=== PATIENT | male | born 1990 | race Caucasian/White ===

== ENCOUNTER 2019-01-17 17:51 | Observation (INO) ==
[2019-01-17] MEDS ORDERED: ZOFRAN IV PRN (19:36)
[2019-01-17] MEDS ORDERED: TYLENOL PO PRN (19:36)
[2019-01-17] MEDS ORDERED: MORPHINE IV PRN (19:41)
[2019-01-17] MEDS ORDERED: ROCEPHIN 1 GM in NS 50 ML IV SCH (20:15)
--- NOTE | 2019-01-17 20:52 | HISTORY AND PHYSICAL ---
CHIEF COMPLAINT: Right flank pain. Kidney stones. HISTORY OF PRESENT ILLNESS: Mr. Jurado is a pleasant 28-year-old male who presented from [facility]. He states that he went this previous Tuesday and was told that he had a three mm kidney stone and was sent home in hopes that it would pass. Today, he had increasing pain that he could not tolerate in his right flank, extending down into his right scrotum and right lower abdomen. He went back and they noted that it was obstructive at this point and sent him here for Urology consultation. He will be placed in observation status on the medical floor. PAST MEDICAL HISTORY: Denies previous medical history. PREVIOUS SURGICAL HISTORY: None to note. SOCIAL HISTORY: Smokes half a pack of cigarettes per day. Smoking cessation was gone over with the patient and he denies wanting to quit at this time. No alcohol or illicit drugs. FAMILY HISTORY: Grandfather had coronary artery disease. Aunt at bedside has COPD. ALLERGIES: No known drug allergies. HOME MEDICATIONS: No home medications. He was given [place] 7.5 related to the pain at the ER. REVIEW OF SYSTEMS: Fourteen point review of systems conducted with the patient. Pertinent positives listed above in the HPI. He denied fever and chills. Had mild nausea, no vomiting. Was positive for abdominal pain, however denied any diarrhea, loss of appetite, or hematuria. All other systems reviewed and found to be negative. PHYSICAL EXAMINATION: VITAL SIGNS: Temperature 99.1, pulse 60, respirations 20, blood pressure 127/73, oxygen saturation 100% on room air. GENERAL: Obese 28-year-old male, very pleasant, lying in the medical floor bed. Alert and oriented x3, in no acute distress. Answers all questions appropriately. HEENT: Head is atraumatic, normocephalic. Pupils equal, round and reactive to light. Extraocular eye movements intact. Sclerae anicteric. Conjunctivae pink. Oral mucosa is moist. NECK: Supple. No JVD. No thyromegaly. Trachea is midline. No cervical lymphadenopathy. CARDIAC: S1, S2 appreciated. No murmurs, gallops, or rubs. LUNGS: Clear to auscultation bilaterally. No rhonchi, wheezes, or rales. Symmetric rise and fall of respirations. ABDOMEN: Protuberant. Soft, nondistended. Tender on the right side extending into his groin and right flank/right CVA tenderness. Bowel sounds present in all four quadrants. No pulsatile mass. No organomegaly. EXTREMITIES: No cyanosis, clubbing, or edema. 2+ pedal pulses bilaterally. GENITOURINARY: No bladder distention. Patient voids. Otherwise deferred. NEUROLOGICAL: Alert and oriented x3. No focal motor deficits. Otherwise nonfocal examination. DIAGNOSTIC DATA: CT or ultrasound was sent on a CD that has not been able to be viewed and read yet, but is with the physical chart. The verbal report was given that he had right obstructive nephrolithiasis. LABORATORY DATA: CBC within normal limits. Sodium 141, potassium 3.9, chloride 101, carbon dioxide 26, BUN 12, creatinine 1.1, glucose 93. Urinalysis with leukocyte esterase positive, 10- 20 WBCs, microscopic blood noted. ASSESSMENT AND PLAN: 1. Right obstructive nephrolithiasis. Will consult Dr. Ho, who can review the imaging that was sent from [facility]. Morphine 2 mg intravenously as needed every three hours. Will start normal saline at 125 mL an hour. Will start prophylactically on Rocephin 1 gram as his urine was leukocyte esterase positive and he does have right costovertebral angle tenderness. However, there was no mention of pyelonephritis on the imaging as far as I am aware of. 2. Flank pain and costovertebral angle tenderness secondary to #1. Please see above. 3. Nicotine use and abuse. Smoking cessation was gone over with the patient at length. Also, I spoke to his aunt. He denied wanting to quit at this time. 4. Nausea without vomiting. Will give Zofran. Further recommendations per patient's clinical course. Dictated by JOVANNA Ambrocio for Lesli Rodrigues MD cc: JOVANNA Ambrocio MD Independent exam and assessment performed by me. Exam was benign except for RLQ tenderness with rebound. Continue with IVF and will add on Flomax. Counselled pt regarding smoking and diet. [facility]
[2019-01-17] MEDS: NS 1,000 ML IV SCH (22:33)
[2019-01-18] MEDS: NS 1,000 ML IV SCH ×2 (04:03→08:21)
[2019-01-18 09:04] LABS: BASO# 0.02 X1000 (0.0-0.2); BASO% 0.3 % (0.0-0.8); EOS# 0.27 X1000 (0.0-0.7); EOS% 4.3 % (0.0-10.0); HEMATOCRIT 40.6 % (42.0-52.0); HEMOGLOBIN 13.7 g/dL (14.0-18.0); IMM GRAN# 0.04 X1000 (0.0-0.04); IMM GRAN% 0.6 % (0.0-0.5); LYMPH# 2.28 X1000 (1.2-3.4); LYMPH% 36.5 % (20.5-51.1); MCH 28.4 PG (27-31); MCHC 33.7 g/dL (33-37); MCV 84.2 FL (81-99); MONO# 0.55 X1000 (0.11-0.59); MONO% 8.8 % (1.7-9.3); MPV 10.5 FL (7.4-10.4); NEUT# 3.08 X1000 (1.4-6.5); NEUT% 49.5 % (42.2-75.2); PLT 282 X1000 (130-400); RBC 4.82 XMIL (4.7-6.1); RDW 13.1 % (11.5-14.5); WBC 6.24 X1000 (4.8-10.8)
[2019-01-18 09:22] LABS: AGAP 10; BUN 11 mg/dL (8-22); CALCIUM 9.3 mg/dL (8.8-10.2); CHLORIDE 104 mmol/L (98-107); COSMO 281; CREATININE 0.9 mg/dL (0.7-1.2); ESTIMATED GFR > 60; GLUCOSE 96 mg/dL (70-104); MAGNESIUM 1.9 mg/dL (1.5-2.7); POTASSIUM 4.7 mmol/L (3.5-5.1); SODIUM 141 mmol/L (136-145); TCO2 27 mmol/L (25-35)
[2019-01-18 12:12] VITALS: BP 138/76
--- NOTE | 2019-01-19 07:26 | DISCHARGE SUMMARY ---
ADMISSION DATE: 01/17/2019 DISCHARGE DATE: 01/18/2019 CONSULTATIONS: Dr. Ho. PERTINENT PROCEDURES: None. DISCHARGE DIAGNOSES: 1. Right obstructing nephrolithiasis. Dr. Ho was consulted. The patient was sent over from [facility] as well as his imaging that was reviewed by Dr. Ho. He was given pain medication as well as IV fluids and prophylactically started on Rocephin. He was then seen and assessed by Dr. Ho and will be discharged home today. 2. Nicotine use and abuse. Smoking cessation was gone on at length with the patient as well as his aunt and he denied wanting to quit at this time. 3. Nausea and vomiting. He was given antiemetics, now resolved. HOSPITAL COURSE: Briefly, Mr. Jurado is a 28-year-old male who presented from [facility] ER. He had gone this previous Tuesday and was told that he had a 3 mm kidney stone and was sent home in hopes that it would pass. However, yesterday he had increase in his pain and he could not tolerate the right flank extending down into the scrotum and the right lower abdomen. He went back and they noted that it was obstructive and sent him to [facility] for a Urology consult. He was placed on observation status, evaluated by Dr. Ho, given IV fluids, antiemetics and pain medication. He is being discharged back home today with self-care. VITAL SIGNS AT TIME OF DISCHARGE: Temperature is 98.1, heart rate 68, respirations 18, blood pressure 138/76, O2 is 100% on room air. DISCHARGE DIET: Regular. DISCHARGE MEDICATIONS: Flomax 0.4 mg p.o. b.i.d. [place] 10 mg p.o. q.4 to q.6 hours p.r.n. pain. FOLLOWUP: Mr. Jurado is being discharged back home. He is to follow-up in two weeks with a KUB. Results should be sent to Dr. Ho. He can return to the ED or call 911 for any worsening of symptoms. Dictated by JOVANNA Rowland for Clint Meza MD cc: Clint Meza MD [facility]
== END 2019-01-18 14:24 | disposition home or self-care (01) ==
LOC: DIRADM 17:51 → SUATTDRO 17:51 → INTOOBSV 17:51 → 4N 19:32
PROVIDERS: ATTEND Internal Medicine